=== PATIENT | female | born 1965 | race Caucasian/White ===

== ENCOUNTER 2022-07-04 08:17 | Day surgery (SDC) | payer OTHER ==
[~2022-07-04] VITALS: Ht 162.6 cm; Wt 87.5 kg
[~2022-07-04 08:17] MED LIST: COZAAR25 MG PO; CRESTOR20 MG PO; LEXAPRO PO; PLAVIX75 MG PO; VITAMIN D
== END 2022-07-04 16:00 | disposition home or self-care (01) ==
LOC: CIR.AMB 08:17
PROVIDERS: ATTEND Orthopaedic Surgery
DX: M77.12 Lateral epicondylitis, left elbow (principal); I10 Essential (primary) hypertension; Z20.822 Contact with and (suspected) exposure to COVID-19